=== PATIENT | female | born 1985 | race Caucasian/White ===

== ENCOUNTER → 2017-10-31 | Outpatient (CLI) | payer OTHER ==
[~2017-10-31] MED LIST: ALBUAER2 INH; EPP3 IM; LORA10TA6 PO; MTR600X PO; PREN1TAB29 PO; SERT1TAB68 PO; TYL325X PO
== END | disposition home or self-care (01) ==
LOC: C.PAPS 08:09
PROVIDERS: ATTEND Physician Assistant
DX: Z01.419 Encounter for gynecological examination (general) (routine) without abnormal findings (principal)